=== PATIENT | female | born 1995 | race Caucasian/White ===

== ENCOUNTER 2025-04-02 03:07 | Emergency (ER) | payer SELFPAY ==
[2025-04-02 03:08] VITALS: BP 120/85; PULSE 69; RESP 18; TEMP 36.8; O2SAT 99; BMI 17.5
--- NOTE | 2025-04-02 03:15 | ED.RN ---
While this nurse was drawing pts blood, pt stating numerous times I wish I would of accomplished it this time. Stating multiple times I just wanna
[2025-04-02 03:33] LABS: Hematocrit 43.9 % (37-47); Hemoglobin 15.0 g/dL (12.0-15.0); Immature Granulocytes Count 0.030 X10^3/uL (0.0-0.0); Mean Corp Hgb Conc 34.2 g/dL (32-36); Mean Corpuscular Volume 97.3 fL (81-99); Mean Platelet Vol. 9.0 fl (6.2-12.0); NRBC Flagged by Analyzer 0 % (0-5); Platelet Count 372 K/mm3 (150-450); RBC Distribution Width CV 12.2 % (11.6-14.6); RBC Distribution Width SD 43.9 fl (35.1-43.9); Red Blood Count 4.51 M/mm3 (4.2-5.4); White Blood Count 10.2 K/mm3 (4.4-11.0)
[2025-04-02 03:46] LABS: Internal QC Validated? YES +Cl - CLEAR BKGD; Pregnancy, Serum, hCG Quali. NEGATIVE Negative; Record Kit Lot#, Serum Preg. 0000980607
[2025-04-02 03:57] LABS: Alcohol, Blood (Medical)-Serum 269.0 mg/dL (<=10.0)
[2025-04-02 03:58] LABS: Anion Gap 16 (5-15); BUN 10 mg/dL (4-19); BUN/Creat Ratio 14.1 RATIO (10-20); Calcium,Total 8.9 mg/dL (7.6-11.0); Carbon Dioxide 23.7 mmol/L (21.0-32.0); Chloride 99 mmol/L (98-108); Estimated Creatinine Clearance 98.09 ml/min (50-250); Glucose 74 mg/dL (70-99); Potassium 3.4 mmol/L (3.3-5.1)
--- NOTE | 2025-04-02 04:05 | ED.RN ---
Pt screaming in room. Pt demanding a phone and her belongings back. This nurse explained to pt that she is pink slipped and will not be getting a phone or belongings. Pt cussing at this nurse, yelling, threatening staff. Dr. Juan updated. Verbal order Pradeep 20mg IM x1.
[2025-04-02 04:08] VITALS: PULSE 84; RESP 18; O2SAT 99
[2025-04-02] MEDS: Ziprasidone IM 20 MG/ML VIAL IM (04:15)
[2025-04-02 05:43] LABS: Barbiturate Urine NEGATIVE (< 200 ng/mL); Benzodiazepine Urine NEGATIVE (< 200 ng/mL); PCP Urine NEGATIVE (< 25 ng/mL); THC Urine PRESUMPTIVE POSITIVE (< 50 ng/mL)
--- NOTE | 2025-04-02 07:31 | EDS_ITS ---
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 EMS/police report that the patient was posting on social media and that she wanted to harm herself this evening and therefore they were called to her house for evaluation. When they arrived she would not answer the door but they found that the door was unlocked and therefore they entered to make sure she was safe. Upon entering the residence they saw a noose hanging from the ceiling fan. Reportedly police noted the patient to be passed out on the floor and she appeared intoxicated. Upon arrival to the ER the patient states that she does not have thoughts of harming herself or anyone else. She admits to alcohol use but denies any type of illicit drug use [facility] Medical History Suicidal ideation Home Medications ?Medication ?Instructions ?Recorded ?Last Taken ?Type NK 04/02/25 Unknown History Allergy/AdvReac Type Severity Reaction Status Date / Time ketamine AdvReac NEEDS Verified 04/02/25 03:15 FOLLOW-UP Social History Smoking Status: Unknown if ever smoked ROS ROS ED Constitutional Constitutional ED: Denies chills or fever(s) ENT ENT ED: Denies sore throat Cardiovascular Cardiovascular: Denies chest pain Respiratory/Chest Respiratory/Chest: Denies cough or dyspnea Gastrointestinal Gastrointestinal: Denies abdominal pain, diarrhea, nausea or vomiting Musculoskeletal Musculoskeletal: Denies back pain or neck pain Integumentary Denies rash Neurologic Neurologic: Denies headache(s) Psychiatric Psychiatric: Denies suicidal ideation or suicidal thoughts Hematologic/Lymphatic Hematologic/Lymphatic: Denies easy bleeding or easy bruising EXAM Physical Exam Const Vital Signs: 04/02/25 03:08 04/02/25 04:08 Temperature 98.2 F Temperature Source Temporal Pulse Rate 69 84 Respiratory Rate 18 18 Blood Pressure 120/85 H Blood Pressure Mean 96 Pulse Ox 99 99 Oxygen Delivery Method Room Air Room Air Positive well nourished and well developed General Appearance ED: well developed; Negative for pallor HEENT HEENT Narrative: No oral lesions no airway edema no secondary findings in the posterior pharynx to suggest infection Eyes EOMs intact bilaterally Eyes Narrative: Pupils are dilated and slightly sluggish to respond to light consistent with alcohol use There is mild scleral injection as well consistent with alcohol use No petechial hemorrhages noted Neck supple Neck Narrative: No nuchal rigidity or meningeal signs No bony deformity or step-off of the cervical spine; no midline tenderness to palpation No abrasions or ecchymosis located around the neck Chest Wall palpation of chest normal Resp normal respiratory effort and clear to auscultation bilaterally Cardio regular rate and regular rhythm Rate: other Other Details: Heart is regular rate and rhythm without murmurs rubs or gallop Radial and carotid pulses are equal and symmetric No carotid bruit noted GI normal to inspection, nondistended, normoactive bowel sounds, non-tender, non- distended and no masses Auscultation: normoactive bowel sounds Palpation: soft Back/Spine Back/Spine Narrative: No bony deformity or step-off of the thoracic or lumbar spine no midline tenderness to palpation Extremity normal to inspection Neuro oriented x3, CN's II-XII intact bilaterally and no sensory deficits noted Sensorium / Orientation: alert Motor Exam: strength 5/5 throughout Psych Psych Narrative: Patient has a tearful depressed affect without reported suicidal or homicidal ideation Mood & Affect: depressed and tearful Skin no rashes or lesions noted General Skin Exam: Negative for jaundice or pallor MDM MDM MDM Narrative Medical decision making narrative: Patient arrived to the ER with stable vitals. With her posterior social media as well as the police report there is concern for self-harm even though patient denies any thoughts of that at this time. Therefore I feel her safest option is psychiatric workup. Patient blood work was obtained checking for acute blood loss anemia illicit drug use or alcohol intoxication or electrolyte abnormality. The alcohol level is increased consistent with her history but otherwise no clinically significant findings. The patient denied trying to harm herself from the noose found at the house. There is no ecchymosis across the neck to suggest that she attempted hurting herself she does not have petechial hemorrhages there is no carotid bruit and therefore do not feel the need for a CTA of the neck. At this time the patient's alcohol level is a above a value for medical clearance. Therefore she will be kept in the ER until the value is below 100 at which time she will be medically sober. She can be evaluated by crisis center at that time and then disposition can be made. As she is awaiting resolution of her alcohol intoxication and evaluation by crisis she will be signed out to day physician Dr. Barnard History & Record Review Discussion w/independent historian: Patient Lab Data Attestation: I reviewed the patient's lab results. Labs: Laboratory Results - last 24 hr 04/02/25 04/02/25 03:12 04:36 WBC 10.2 RBC 4.51 Hgb 15.0 Hct 43.9 MCV 97.3 MCH 33.3 H MCHC 34.2 RDW Std Deviation 43.9 RDW Coeff of Jai 12.2 Plt Count 372 MPV 9.0 Immature Gran % (Auto) 0.300 Neut % (Auto) 48.6 Lymph % (Auto) 42.1 H Jack % (Auto) 6.8 Eos % (Auto) 1.6 Baso % (Auto) 0.6 Absolute Neuts (auto) 5.0 Absolute Lymphs (auto) 4.30 Nucleated RBC % 0 Sodium 139 Potassium 3.4 Chloride 99 Carbon Dioxide 23.7 Anion Gap 16 H BUN 10 Creatinine 0.70 Estim Creat Clear Calc 98.09 Est GFR (MDRD) Non-Af 120 BUN/Creatinine Ratio 14.1 Glucose 74 Calcium 8.9 Serum , Qual NEGATIVE Urine Opiates Screen NEGATIVE U Buprenorphine Qual NEGATIVE Ur Oxycodone Screen NEGATIVE Urine Methadone Screen NEGATIVE Urine Fentanyl Screen NEGATIVE Ur Barbiturates Screen NEGATIVE Ur Phencyclidine Scrn NEGATIVE Ur Amphetamines Screen NEGATIVE U Benzodiazepines Scrn NEGATIVE Urine Cocaine Screen NEGATIVE U Cannabinoids Screen PRESUMPTIVE POSITIVE Ethyl Alcohol 269.0 H Management Discussion w/another healthcare provider: Behavioral health Discharge Plan Triage Chief Complaint: Suicidal ED Provider: Jesus Juan Dx/Rx/DC Orders Clinical Impression: Alcohol intoxication Instructions: ED Depression, ED Alcohol Intoxication Prescriptions: No Action NK Primary Care Provider: Lily Pelayo Referrals: Lily Pelayo MD [Primary Care Provider, Family Practice] Print Language: Irish
[2025-04-02 13:04] VITALS: BP 122/84; PULSE 76; RESP 14; O2SAT 97
[2025-04-02 13:07] LABS: Alcohol, Blood (Medical)-Serum 54.2 mg/dL (<=10.0)
== END 2025-04-02 16:08 | disposition home or self-care (01) ==
PROVIDERS: Emergency Provider Emergency Medicine; PCP Family Medicine; Visit Provider Emergency Medicine
DX: R45.851 Suicidal ideations (principal); F10.929 Alcohol use, unspecified with intoxication, unspecified
CPT/HCPCS: 80048; 80307; 82077; 84703; 85025; 96372; 99285; J3486